=== PATIENT | female | born 1970 | race Caucasian/White ===

== ENCOUNTER 2019-05-07 17:34 | Emergency (ER) | payer SELFPAY ==
--- NOTE | 2019-05-07 18:38 | XRay Report ---
CHEST 1 VIEW INDICATION: CP. COMPARISON: None. FINDINGS: Support devices: None. Heart: Normal. Lungs/Pleura: No acute pulmonary or pleural findings. IMPRESSION: 1. No acute findings. Signer Name: Kevin Moscoso MD Signed: 05/07/2019 6:34 PM Workstation Name: [email or web address]
[2019-05-07 18:51] LABS: Alanine Aminotransferase 13 units/L (7-56); Albumin 3.8 g/dL (3.9-5); BUN/Creatinine Ratio 26; Blood Urea Nitrogen 13 mg/dL (7-17); Hemolysis Index 81
[2019-05-07 19:09] LABS: Basophils % (Auto) 0.4 % (0.0-1.8); Eosinophils # (Auto) 0.1 K/mm3 (0.0-0.4); Eosinophils % (Auto) 0.8 % (0.0-4.3); Hematocrit 42.2 % (30.3-42.9); Hemoglobin 14.1 gm/dl (10.1-14.3); Lymphocytes # (Auto) 2.8 K/mm3 (1.2-5.4); Lymphocytes % (Auto) 32.1 % (13.4-35.0); Mean Corpuscular HGB Conc 33 % (30-34); Mean Corpuscular Volume 93 fl (79-97); Monocytes # (Auto) 0.6 K/mm3 (0.0-0.8); Monocytes % (Auto) 7.1 % (0.0-7.3); Platelet Count 271 K/mm3 (140-440); Red Blood Count 4.56 M/mm3 (3.65-5.03); Red Cell Distribution Width 13.6 % (13.2-15.2)
--- NOTE | 2019-05-07 19:35 | Emergency Department Report ---
ED Chest Pain HPI - General Chief Complaint: Chest Pain Stated Complaint: CHEST PAIN/KISHA Time Seen by Provider: 05/07/19 18:25 Source: patient, family, EMS Mode of arrival: Stretcher Limitations: Language Barrier - History of Present Illness Initial Comments: 49-year-old female with history of diabetes, hypercholesterolemia presents to ED with chest pain 3 days. Patient states pain is left-sided, constant, and pressure-like in nature. Patient reports associated shortness of breath, only when laying down, denies any dyspnea on exertion. Patient denies nausea, vomiting, diaphoresis, leg pain or swelling. Patient recently had a normal exercise stress test 2 weeks ago. MD Complaint: chest pain -: days(s) (3) Onset: during rest Pain Location: left chest Pain Radiation: none Severity: moderate Severity scale (0 -10): 5 Quality: pressure Consistency: constant Improves With: nothing Worsens With: nothing re: dyspnea. denies: nausea, vomting, diaphoresis Other Symptoms: denies: cough, fever, syncope, leg swelling, palpitations Treatments Prior to Arrival: aspirin - Related Data Allergies Allergy/AdvReac Type Severity Reaction Status Date / Time No Known Allergies Allergy Unverified 10/16/14 09:59 Heart Score - HEART Score History: Slightly suspicious EKG: Normal Age: 45-65 Risk factors: 1-2 risk factors Troponin: < normal limit HEART Score: 2 ED Review of Systems ROS: Stated complaint: CHEST PAIN/KISHA Other details as noted in HPI Comment: All other systems reviewed and negative Constitutional: denies: chills, fever Respiratory: shortness of breath. denies: cough Cardiovascular: chest pain Gastrointestinal: denies: abdominal pain, nausea, vomiting Musculoskeletal: other (denies leg pain or swelling) ED Past Medical Hx - Past Medical History Hx Hypertension: Yes Hx Diabetes: Yes - Surgical History Past Surgical History?: No - Social History Smoking Status: Never Smoker Substance Use Type: None ED Physical Exam - General Limitations: Language Barrier General appearance: alert, in no apparent distress - Head Head exam: Present: atraumatic, normocephalic - Eye Eye exam: Present: normal appearance, PERRL, EOMI - ENT ENT exam: Present: mucous membranes moist - Neck Neck exam: Present: normal inspection - Respiratory Respiratory exam: Present: normal lung sounds bilaterally. Absent: respiratory distress - Cardiovascular Cardiovascular Exam: Present: regular rate, normal rhythm - GI/Abdominal GI/Abdominal exam: Present: soft. Absent: distended, tenderness - Extremities Exam Extremities exam: Present: normal inspection - Neurological Exam Neurological exam: Present: alert, oriented X3 - Psychiatric Psychiatric exam: Present: normal affect, normal mood - Skin Skin exam: Present: warm, dry, intact, normal color ED Course Vital Signs 05/07/19 05/07/19 05/07/19 17:42 17:59 18:00 Temperature 98.1 F Pulse Rate 80 78 88 Respiratory 18 18 14 Rate Blood Pressure 115/56 134/87 Blood Pressure 115/56 [Left] O2 Sat by Pulse 98 100 98 Oximetry 05/07/19 05/07/19 05/07/19 18:08 18:30 19:00 Temperature Pulse Rate 86 90 Respiratory 20 13 15 Rate Blood Pressure 110/89 132/64 Blood Pressure [Left] O2 Sat by Pulse 99 100 99 Oximetry 05/07/19 05/07/19 05/07/19 19:30 19:37 20:00 Temperature Pulse Rate 74 82 Respiratory 13 18 10 L Rate Blood Pressure 132/55 117/71 Blood Pressure [Left] O2 Sat by Pulse 97 99 Oximetry 05/07/19 05/07/19 05/07/19 20:30 21:00 21:30 Temperature Pulse Rate 77 79 75 Respiratory 12 18 12 Rate Blood Pressure 124/60 118/60 96/41 Blood Pressure [Left] O2 Sat by Pulse 99 100 100 Oximetry 05/07/19 05/07/19 22:00 22:30 Temperature Pulse Rate 78 74 Respiratory 15 17 Rate Blood Pressure 123/69 138/69 Blood Pressure [Left] O2 Sat by Pulse 98 97 Oximetry ED Medical Decision Making - Lab Data Result diagrams: 05/07/19 18:13 05/07/19 18:13 - EKG Data -: EKG Interpreted by Ca EKG shows normal: sinus rhythm, intervals, QRS complexes, ST-T waves Rate: normal - EKG Data Interpretation: no acute changes, other (old inferior infarct) - Radiology Data Radiology results: report reviewed, image reviewed - Medical Decision Making 49-year-old female presents to ED with chest pain. He is normal, troponin is negative 2. D-dimer negative. Patient brought in paperwork with her from stress testing that was done 2 weeks ago. Stress test was normal at that time. Vital signs are normal. Chest pain improved. Will not admit since patient recently had a cardiac workup. Patient advised to follow up with her PCP. Return precautions given. - Differential Diagnosis ACS, PE, chest wall pain, GERD Critical care attestation.: If time is entered above; I have spent that time in minutes in the direct care of this critically ill patient, excluding procedure time. ED Disposition Clinical Impression: Acute chest pain Disposition: - TO HOME OR SELFCARE Is pt being admited?: No Condition: Stable Instructions: Chest Pain (ED) Referrals: PRIMARY CARE, [Primary Care Provider] - 3-5 Days Time of Disposition: 22:17
[2019-05-07 19:57] LABS: INR 0.88 (0.87-1.13); Partial Thromboplastin Time 26.9 Sec. (24.2-36.6)
[2019-05-07 22:45] VITALS: BP 138/69
== END 2019-05-07 22:45 | disposition home or self-care (01) ==
LOC: ED 17:34
DX: R07.89 Other chest pain (principal); I10 Essential (primary) hypertension; E11.9 Type 2 diabetes mellitus without complications
CPT/HCPCS: 36415; 71045; 80053; 84484; 85025; 85379; 85610; 85730; 93005; 93010